=== PATIENT | male | born 1965 | race African-American/Black ===

== ENCOUNTER 2017-12-04 10:48 | Inpatient (IN) | payer OTHER ==
[2017-12-04 13:25] VITALS: BMI 19.2
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
[2017-12-04] MEDS ORDERED: P-EPHED 60MG/TRIPROLIDI 2.5MG TABLET PO PRN (14:58)
[2017-12-04] MEDS ORDERED: chlordiazePOXIDE HCL 25 MG CAPSULE PO PRN (14:58)
[2017-12-04] MEDS ORDERED: ACETAMINOPHEN 325 MG TABLET (FP) PO PRN (14:58)
[2017-12-04] MEDS ORDERED: MAGNESIUM CITRATE 300 ML BOTTLE PO PRN (14:58)
[2017-12-04] MEDS ORDERED: guaiFENesin/D-METHORPHAN HB 10 ML UNIT-DOSE CUPS PO PRN (14:58)
[2017-12-04] MEDS ORDERED: MAGNESIUM HYDROX 2400MG/30ML ORAL SUSPENSION 30 ML CUP PO PRN (14:58)
[2017-12-04] MEDS ORDERED: IBUPROFEN 400 MG TABLET (FP) PO PRN (14:58)
[2017-12-04] MEDS ORDERED: MENTHOL/PHENOL 1 EACH UD MM PRN (14:58)
[2017-12-04] MEDS ORDERED: MAG HYDROX/AL HYDROX/SIMETH 30 ML UNIT-DOSE CUP PO PRN (14:58)
[2017-12-04] MEDS ORDERED: LOPERAMIDE HCL 2 MG CAPSULE PO PRN (14:58)
[2017-12-04] MEDS ORDERED: hydrOXYzine PAMOATE 50 MG CAPSULE (FP) PO PRN (15:03)
[2017-12-04] MEDS ORDERED: chlordiazePOXIDE HCL 25 MG CAPSULE PO ONE (15:03)
[2017-12-04] MEDS ORDERED: NICOTINE POLACRILEX 2 MG GUM BC PRN (15:03)
[2017-12-04] MEDS: chlordiazePOXIDE HCL 25 MG CAPSULE PO SCH ×2 (18:00→22:20)
[2017-12-04] MEDS ORDERED: MELATONIN 5 MG TABLETS PO PRN (22:00)
[2017-12-04] MEDS: THIAMINE HCL 100 MG TABLET (FP) PO SCH (22:20)
[2017-12-05 02:18] LABS: URINE APPEARANCE CLEAR; URINE BILIRUBIN NEGATIVE (<2.0 mg/dL); URINE COLOR AMBER; URINE GLUCOSE (UA) NEGATIVE (NEGATIVE); URINE KETONE NEGATIVE (NEGATIVE); URINE LEUK ESTERASE NEGATIVE (NEGATIVE); URINE NITRITE NEGATIVE (NEGATIVE)
[2017-12-05 02:25] LABS: URINE PROTEIN 1+ (NEGATIVE)
[2017-12-05 02:33] LABS: EPI CELLS RARE /HPF (FEW); URINE MUCUS RARE
[2017-12-05] MEDS: chlordiazePOXIDE HCL 25 MG CAPSULE PO SCH ×4 (06:04→22:28)
[2017-12-05] MEDS ORDERED: ASPIRIN 81 MG CHEWABLE TABLETS PO SCH (10:00)
[2017-12-05] MEDS: PRENATAL VITAMINS W/ FOLIC ACID TABLET (FP) PO SCH (10:18)
--- NOTE | 2017-12-05 10:19 | CONSULT ---
[facility] Psychiatric Consult - Data Date of interview: 12/05/17 Admission source: [facility] Identifying data: Patient is a 52 year old divorce male, father of two, unemployed, living in an SRO, and supported by the [facility] program. This is one of multiple admissions to detox at [facility]. Pt. admitted to for alcohol and marijuana dependence. Substance Abuse History: Smoking Cessation. Smoking history: Current every day smoker. Have you smoked in the past 12 months: Yes. Aproximately how many cigarettes per day: 5. Cigars Per Day: 0. Hx Chewing Tobacco Use: No. Initiated information on smoking cessation: Yes. 'Breaking Loose' booklet given : 12/04/17. - Substance & Tx. History. Hx Alcohol Use: Yes. Hx Substance Use : Yes. Substance Use Type: Alcohol, Cocaine, Marijuana. Hx Substance Use Treatment: Yes (Last Detox at [facility] two months ago). - Substances Abused. Alcohol. Route: Oral. Frequency: Daily. Amount used: 3 pints vodka. Age of first use: 13. Date of Last Use: 12/04/17. Marijuana/Hashish. Route: Smoking. Frequency: 1-2 times per week. Amount used: $10. Age of first use: 13. Date of Last Use: 12/03/17. Crack. Route: Smoking. Frequency: 3-6 times per week. Amount used: $10. Age of first use: 26. Date of Last Use: 12/14 Medical History: Diabetes, Hep C, neuropathy, HIV Psychiatric History: Pt. reports multiple psychiatric hospitalizations, most recently in 2017 [facility]. Pt. is also [facility] to [facility]. [facility] provided at [facility]. As per pharmacy claims patient is prescribed Elavil 25mg. Reports most recently taking elavil couple months ago. Pt. denies h/o suicide attemps. Physical/Sexual Abuse/Trauma History: Denies. Mental Status Exam - Mental Status Exam Alert and Oriented to: Time, Place, Person Cognitive Function: Good Patient Appearance: Well Groomed Mood: Hopeful, Euthymic Affect: Mood Congruent Patient Behavior: Cooperative Speech Pattern: Appropriate Voice Loudness: Normal Thought Process: Intact, Goal Oriented Thought Disorder: Not Present Hallucinations: Denies Suicidal Ideation: Denies Homicidal Ideation: Denies Insight/Judgement: Poor Sleep: Poorly Appetite: Fair Muscle strength/Tone: Normal Gait/Station: Normal Psychiatric Findings - Problem List ([place] 1, 2,3) (1) Alcohol dependence with uncomplicated withdrawal Current Visit: Yes Status: Acute (2) Cannabis dependence, uncomplicated Current Visit: Yes Status: Chronic (3) Cocaine dependence, uncomplicated Current Visit: Yes Status: Chronic (4) Substance-induced sleep disorder Current Visit: Yes Status: Acute - Initial Treatment Plan Initial Treatment Plan: Psychoeducatin provided. Detoxification in progress. Elavil 25mg ordered. Benefits and side effects discussed. Verbal consent given.
[2017-12-05] MEDS: NICOTINE 14 MG/24 HOURS TOPICAL PATCH TD SCH (10:20)
[2017-12-05 10:37] LABS: HEMATOCRIT 39.3 % (35.4-49); HEMOGLOBIN 13.1 GM/dL (11.7-16.9); MCH 33.4 pg (25.7-33.7); MCHC 33.4 g/dl (32.0-35.9); MEAN CELL VOLUME 100.1 fl (80-96); MEAN PLT VOLUME 9.7 fl (7.5-11.1); PLATELET COUNT 155 K/MM3 (134-434); RBC 3.93 M/mm3 (4.00-5.60)
[2017-12-05 11:04] LABS: ALBUMIN 3.2 g/dl (3.4-5.0); ANION GAP 9 (8-16); BILIRUBIN,TOTAL 1.2 mg/dL (0.2-1.0); BLOOD UREA NITROGEN 11 mg/dL (7-18); CALCIUM 8.7 mg/dL (8.5-10.1); CHLORIDE 102 mmol/L (98-107); CO2 30 mmol/L (21-32); GLUCOSE,RANDOM 175 mg/dL (74-106); SGOT/AST 96 U/L (15-37); SGPT/ALT 59 U/L (12-78); SODIUM 141 mmol/L (136-145); TOT PROT 8.1 g/dl (6.4-8.2)
[2017-12-05 11:05] LABS: ALK PHOS 51 U/L (45-117)
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
[2017-12-05] MEDS: CYCLOBENZAPRINE HCL 10 MG TABLET (FP) PO PRN ×2 (14:05→22:27)
[2017-12-05] MEDS: ACYCLOVIR 400 MG TABLET PO SCH ×2 (14:05→22:27)
--- NOTE | 2017-12-05 16:49 | EKG ---
Test Reason : Blood Pressure : / mmHG Vent. Rate : 070 BPM Atrial Rate : 070 BPM P-R Int : 152 ms QRS Dur : 092 ms QT Int : 412 ms P-R-T Axes : 069 035 046 degrees QTc Int : 444 ms NORMAL SINUS RHYTHM MODERATE VOLTAGE CRITERIA FOR LVH, MAY BE NORMAL VARIANT CANNOT RULE OUT SEPTAL INFARCT , AGE UNDETERMINED ABNORMAL ECG NO PREVIOUS ECGS AVAILABLE Confirmed by JUNE SUAREZ, GERA ([id number]) on 12/05/2017 3:51:53 PM Referred By: Confirmed By:GERA WATKINS MD
[2017-12-05] MEDS ORDERED: AMITRIPTYLINE HCL 25 MG TABLET (FP) PO SCH (22:00)
[2017-12-05] MEDS: THIAMINE HCL 100 MG TABLET (FP) PO SCH (22:27)
[2017-12-06] MEDS: chlordiazePOXIDE HCL 25 MG CAPSULE PO SCH ×2 (06:46→10:33)
[2017-12-06] MEDS: PRENATAL VITAMINS W/ FOLIC ACID TABLET (FP) PO SCH (10:33)
[2017-12-06] MEDS: ACYCLOVIR 400 MG TABLET PO SCH (10:34)
[2017-12-06] MEDS: NICOTINE 14 MG/24 HOURS TOPICAL PATCH TD SCH (10:35)
--- NOTE | 2017-12-06 12:18 | PN ---
S CIWA - CIWA Score Nausea/Vomitin-No Nausea/No Vomiting Muscle Tremors: None Anxiety: 4-Mod. Anxious/Guarded Agitation: 3 Paroxysmal Sweats: 3 Orientation: 0-Oriented Tacttile Disturbances: 2-Mild Itch/Numbness/Burn Auditory Disturbances: 0-None Visual Disturbances: 2-Mild Sensitivity Headache: 0-None Present CIWA-Ar Total Score: 14 S Progress Note (SOAP) Subjective: Body Aches, Anxious, Sweating. Objective: PATIENT A & O X 3, OBSERVED AMBULATING ON UNIT. NO ACUTE DISTRESS. 12/06/17 12:15 Vital Signs Temperature 98.2 F 12/06/17 09:35 Pulse Rate 68 12/06/17 09:35 Respiratory Rate 18 12/06/17 09:35 Blood Pressure 123/70 12/06/17 09:35 O2 Sat by Pulse Oximetry (%) Laboratory Tests 12/04/17 12/04/17 12/05/17 15:49 20:41 00:01 WBC RBC Hgb Hct MCV MCH MCHC RDW Plt Count MPV Sodium Potassium Chloride Carbon Dioxide Anion Gap BUN Creatinine Creat Clearance w eGFR POC Glucometer 110 91 Random Glucose Calcium Total Bilirubin AST ALT Alkaline Phosphatase Total Protein Albumin Urine Color Janet Urine Appearance Clear Urine pH 5.0 Ur Specific [place] 1.032 Urine Protein 1+ H Urine Glucose (UA) Negative Urine Ketones Negative Urine Blood Negative Urine Nitrite Negative Urine Bilirubin Negative Urine Urobilinogen 2.0 Ur Leukocyte Esterase Negative Urine WBC (Auto) 1 Urine RBC (Auto) 1 Ur Epithelial Cells Rare Urine Mucus Rare 12/05/17 12/05/17 12/05/17 05:57 07:00 07:00 WBC 3.0 L RBC 3.93 L Hgb 13.1 Hct 39.3 MCV 100.1 H MCH 33.4 MCHC 33.4 RDW 12.0 Plt Count 155 D MPV 9.7 Sodium 141 Potassium 4.0 Chloride 102 Carbon Dioxide 30 Anion Gap 9 BUN 11 Creatinine 1.0 Creat Clearance w eGFR > 60 POC Glucometer 152 Random Glucose 175 H D Calcium 8.7 Total Bilirubin 1.2 H AST 96 H D ALT 59 Alkaline Phosphatase 51 Total Protein 8.1 Albumin 3.2 L Urine Color Urine Appearance Urine pH Ur Specific [place] Urine Protein Urine Glucose (UA) Urine Ketones Urine Blood Urine Nitrite Urine Bilirubin Urine Urobilinogen Ur Leukocyte Esterase Urine WBC (Auto) Urine RBC (Auto) Ur Epithelial Cells Urine Mucus 12/05/17 12/05/17 11:07 17:01 WBC RBC Hgb Hct MCV MCH MCHC RDW Plt Count MPV Sodium Potassium Chloride Carbon Dioxide Anion Gap BUN Creatinine Creat Clearance w eGFR POC Glucometer 85 115 Random Glucose Calcium Total Bilirubin AST ALT Alkaline Phosphatase Total Protein Albumin Urine Color Urine Appearance Urine pH Ur Specific [place] Urine Protein Urine Glucose (UA) Urine Ketones Urine Blood Urine Nitrite Urine Bilirubin Urine Urobilinogen Ur Leukocyte Esterase Urine WBC (Auto) Urine RBC (Auto) Ur Epithelial Cells Urine Mucus LABS NOTED. Assessment: 12/06/17 12:15 WITHDRAWAL SYMPTOMS. Plan: CONTINUE DETOX. INCREASE DAILY PO FLUID INTAKE. RESULTS OF X-RAY OF RIGHT ANKLE NOTED (NO SIGN ACUTE/RECENT INJURY NOTED). RESULTS DISCUSSED WITH PATIENT. PATIENT ADVISED TO EMPLOY [employer] AND TO FOLLOW-UP WITH CLIENT ACCOUNT REPRESENTATIVE AFTER DISCHARGE FROM DETOX UNIT FOR FURTHER EVALUATION. PATIENT VERBALIZED UNDERSTANDING OF RECOMMENDATION.
[2017-12-06 14:22] VITALS: BP 126/79; PULSE 76; TEMP 98.7
[2017-12-06] MEDS ORDERED: chlordiazePOXIDE 5 MG CAPSULE PO SCH (17:00)
--- NOTE | 2017-12-06 17:26 | DS ---
[facility] Detox Discharge Summary Admission Date: 12/04/17 Discharge Date: 12/06/17 - History Present History: Alcohol Dependence, Cannabis Dependence, Cocaine Dependence Additional Comments: PATIENT DOES NOT WISH TO REMAIN TO COMPLETE DETOX REGIMEN. RISKS OF LEAVING DETOX UNIT AGAINST MEDICAL ADVICE AND PRIOR TO COMPLETION OF DETOX REGIMEN EXPLAINED TO PATIENT. PATIENT ADVISED TO GO IMMEDIATELY TO NEAREST ER SHOULD ANY INTOLERABLE DETOX SYMPTOMS DEVELOP AT ANY TIME. PATIENT LEFT DETOX UNIT IN STABLE MEDICAL CONDITION. Pertinent Past History: History of Depression, History of Bipolar Disorder, HIV, Hep C, Neuropathy, Type II DM, Nicotine Dependence. - Physical Exam Results Vital Signs: Vital Signs Temperature 98.7 F 12/06/17 14:00 Pulse Rate 76 12/06/17 14:00 Respiratory Rate 16 12/06/17 14:00 Blood Pressure 126/79 12/06/17 14:00 O2 Sat by Pulse Oximetry (%) Pertinent Admission Physical Exam Findings: WITHDRAWAL SYMPTOMS. Laboratory Tests 12/04/17 12/04/17 12/05/17 15:49 20:41 00:01 WBC RBC Hgb Hct MCV MCH MCHC RDW Plt Count MPV Sodium Potassium Chloride Carbon Dioxide Anion Gap BUN Creatinine Creat Clearance w eGFR POC Glucometer 110 91 Random Glucose Calcium Total Bilirubin AST ALT Alkaline Phosphatase Total Protein Albumin Urine Color Janet Urine Appearance Clear Urine pH 5.0 Ur Specific [place] 1.032 Urine Protein 1+ H Urine Glucose (UA) Negative Urine Ketones Negative Urine Blood Negative Urine Nitrite Negative Urine Bilirubin Negative Urine Urobilinogen 2.0 Ur Leukocyte Esterase Negative Urine WBC (Auto) 1 Urine RBC (Auto) 1 Ur Epithelial Cells Rare Urine Mucus Rare RPR Titer 12/05/17 12/05/17 12/05/17 05:57 07:00 07:00 WBC 3.0 L RBC 3.93 L Hgb 13.1 Hct 39.3 MCV 100.1 H MCH 33.4 MCHC 33.4 RDW 12.0 Plt Count 155 D MPV 9.7 Sodium 141 Potassium 4.0 Chloride 102 Carbon Dioxide 30 Anion Gap 9 BUN 11 Creatinine 1.0 Creat Clearance w eGFR > 60 POC Glucometer 152 Random Glucose 175 H D Calcium 8.7 Total Bilirubin 1.2 H AST 96 H D ALT 59 Alkaline Phosphatase 51 Total Protein 8.1 Albumin 3.2 L Urine Color Urine Appearance Urine pH Ur Specific [place] Urine Protein Urine Glucose (UA) Urine Ketones Urine Blood Urine Nitrite Urine Bilirubin Urine Urobilinogen Ur Leukocyte Esterase Urine WBC (Auto) Urine RBC (Auto) Ur Epithelial Cells Urine Mucus RPR Titer 12/05/17 12/05/17 12/05/17 07:00 11:07 17:01 WBC RBC Hgb Hct MCV MCH MCHC RDW Plt Count MPV Sodium Potassium Chloride Carbon Dioxide Anion Gap BUN Creatinine Creat Clearance w eGFR POC Glucometer 85 115 Random Glucose Calcium Total Bilirubin AST ALT Alkaline Phosphatase Total Protein Albumin Urine Color Urine Appearance Urine pH Ur Specific [place] Urine Protein Urine Glucose (UA) Urine Ketones Urine Blood Urine Nitrite Urine Bilirubin Urine Urobilinogen Ur Leukocyte Esterase Urine WBC (Auto) Urine RBC (Auto) Ur Epithelial Cells Urine Mucus RPR Titer Nonreactive LABS NOTED. - Treatment Hospital Course: Detoxed Safely - Medication Discharge Medications: Ambulatory Orders Emtricitabine/Tenofovir (Tdf) [Truvada 200 mg-300 mg Tablet] 1 each PO DAILY 05/14 Risperidone [Risperdal -] 0.5 mg PO HS #30 tablet 02/29/16 Acyclovir [Zovirax -] 400 mg PO BID tablet 03/01/16 Atazanavir [Reyataz -] 300 mg PO DAILY capsule 03/01/16 Ritonavir [Norvir -] 100 mg PO DAILY@2200 tab 03/01/16 Aspirin 81 mg PO DAILY 12/04/17 - Diagnosis (1) Alcohol dependence with uncomplicated withdrawal Status: Acute (2) Cannabis dependence, uncomplicated Status: Chronic (3) Diabetes Status: Chronic Qualifiers: Diabetes mellitus type: type 2 Diabetes mellitus senior care insulin use: without intermediate school teacher use Diabetes mellitus complication status: with unspecified complications Qualified Code(s): E11.8 - Type 2 diabetes mellitus with unspecified complications (4) HIV (human immunodeficiency virus infection) Status: Chronic (5) Neuropathy Status: Chronic (6) Nicotine dependence Status: Chronic Qualifiers: Nicotine product type: cigarettes Substance use status: uncomplicated Qualified Code(s): F17.210 - Nicotine dependence, cigarettes, uncomplicated (7) Depressed mood Status: Acute - AMA Did Patient Leave Against Medical Advice: Yes (PATIENT DID NOT WISH TO REMAIN TO COMPELTE DETOX REGIMEN.)
[2017-12-07] MEDS ORDERED: chlordiazePOXIDE HCL 10 MG CAPSULE PO SCH (17:00)
== END 2017-12-06 15:47 | disposition left against medical advice (07) | DRG 770 ==
LOC: YASAS 10:48 → Y3N 16:20
PROVIDERS: ADMIT Surgery; ATTEND Surgery
PROC: HZ2ZZZZ Detoxification Services for Substance Abuse Treatment (ICD-10-PCS; principal; 2017-12-04)
DX: F10.230 Alcohol dependence with withdrawal, uncomplicated (principal); F14.20 Cocaine dependence, uncomplicated; F12.20 Cannabis dependence, uncomplicated; F17.210 Nicotine dependence, cigarettes, uncomplicated; F32.9 Major depressive disorder, single episode, unspecified; F19.282 Other psychoactive substance dependence with psychoactive substance-induced sleep disorder; E11.8 Type 2 diabetes mellitus with unspecified complications; Z21 Asymptomatic human immunodeficiency virus [HIV] infection status; G62.9 Polyneuropathy, unspecified; Z91.011 Allergy to milk products; Z91.5 Personal history of self-harm
CPT/HCPCS: 36415; 73610-TC-RT-FY; 80053; 81003; 81015; 82962; 85027; 86593; 93005; 93010

== ENCOUNTER 2020-11-18 12:57 | Inpatient (IN) | payer OTHER ==
[2020-11-18 14:06] VITALS: BMI 19.5
[2020-11-18] MEDS ORDERED: LORazepam 1 MG TABLET PO PRN (15:16)
[2020-11-18] MEDS ORDERED: MAGNESIUM HYDROX 2400MG/30ML ORAL SUSPENSION 30 ML CUP PO PRN (15:16)
[2020-11-18] MEDS ORDERED: BISMUTH SUBSALICYLATE 524 MG/30 ML PO PRN (15:16)
[2020-11-18] MEDS ORDERED: METHOCARBAMOL 500 MG TABLET PO PRN (15:16)
[2020-11-18] MEDS ORDERED: MAGNESIUM CITRATE 300 ML BOTTLE PO PRN (15:16)
[2020-11-18] MEDS ORDERED: ONDANSETRON *ODT* 4 MG TABLET SL PRN (15:16)
[2020-11-18] MEDS ORDERED: MAG HYDROX/AL HYDROX/SIMETH 30 ML UNIT-DOSE CUP PO PRN (15:16)
[2020-11-18] MEDS ORDERED: MENTHOL/PHENOL 1 EACH UD MM PRN (15:16)
[2020-11-18] MEDS ORDERED: ACETAMINOPHEN 325 MG TABLET (FP) PO PRN (15:16)
[2020-11-18] MEDS ORDERED: NICOTINE POLACRILEX 2 MG GUM BUC PRN (15:16)
[2020-11-18] MEDS: LORazepam 2 MG TABLET PO SCH ×2 (18:18→22:32)
[2020-11-18] MEDS: IBUPROFEN 400 MG TABLET (FP) PO PRN (18:19)
[2020-11-18] MEDS: hydrOXYzine PAMOATE 25 MG CAPSULE (FP) PO SCH ×2 (18:37→22:31)
[2020-11-18] MEDS: ACETAMINOPHEN 325 MG TABLET (FP) PO PRN (18:50)
[2020-11-18] MEDS: BICTEGRAV/EMTRICIT/TENOFOV (BIKTARVY) 50-200-25 MG TABLET PO SCH (20:34)
[2020-11-18] MEDS: THIAMINE HCL 100 MG TABLET (FP) PO SCH (22:31)
[2020-11-18] MEDS: MELATONIN 5 MG TABLETS PO SCH (22:32)
[2020-11-19] MEDS: hydrOXYzine PAMOATE 25 MG CAPSULE (FP) PO SCH ×5 (06:27→23:02)
[2020-11-19] MEDS: LORazepam 2 MG TABLET PO SCH ×4 (06:28→23:02)
[2020-11-19 09:57] LABS: HEMATOCRIT 36.3 % (35.4-49); HEMOGLOBIN 12.2 GM/dL (11.7-16.9); MCH 34.2 pg (25.7-33.7); MCHC 33.6 g/dl (32.0-35.9); MEAN CELL VOLUME 101.9 fl (80-96); MEAN PLT VOLUME 9.2 fl (7.5-11.1); PLATELET COUNT 163 10^3/uL (134-434); RBC 3.57 M/mm3 (4.00-5.60); RDW 12.3 % (11.9-15.9); WHITE BLOOD COUNT 3.9 K/mm3 (4.0-10.0)
[2020-11-19 10:27] LABS: CALCIUM 8.2 mg/dL (8.5-10.1)
[2020-11-19 10:28] LABS: BLOOD UREA NITROGEN 16.3 mg/dL (7-18)
[2020-11-19] MEDS: ASPIRIN 81 MG CHEWABLE TABLETS PO SCH (10:29)
[2020-11-19] MEDS: PRENATAL VITAMINS W/ FOLIC ACID TABLET (FP) PO SCH (10:29)
[2020-11-19 10:31] LABS: CREATININE 0.8 mg/dL (0.55-1.3)
[2020-11-19] MEDS: IBUPROFEN 400 MG TABLET (FP) PO PRN ×2 (10:32→18:02)
[2020-11-19] MEDS: BICTEGRAV/EMTRICIT/TENOFOV (BIKTARVY) 50-200-25 MG TABLET PO SCH (10:32)
[2020-11-19 10:33] LABS: BILIRUBIN,TOTAL 0.5 mg/dL (0.2-1); TOT PROT 7.1 g/dl (6.4-8.2)
[2020-11-19] MEDS: ACETAMINOPHEN 325 MG TABLET (FP) PO PRN (14:16)
[2020-11-19] MEDS ORDERED: MASKS NR ONE (17:55)
[2020-11-19] MEDS: THIAMINE HCL 100 MG TABLET (FP) PO SCH (23:02)
[2020-11-19] MEDS: MELATONIN 5 MG TABLETS PO SCH (23:03)
[2020-11-20] MEDS ORDERED: LORazepam 1 MG TABLET PO SCH (05:00)
[2020-11-20] MEDS: hydrOXYzine PAMOATE 25 MG CAPSULE (FP) PO SCH ×2 (06:00→15:05)
[2020-11-20 06:40] VITALS: BP 153/81; PULSE 60; TEMP 97.7
[2020-11-20] MEDS: ACETAMINOPHEN 325 MG TABLET (FP) PO PRN (06:53)
[2020-11-20] MEDS: PRENATAL VITAMINS W/ FOLIC ACID TABLET (FP) PO SCH (15:04)
[2020-11-20] MEDS: ASPIRIN 81 MG CHEWABLE TABLETS PO SCH (15:04)
[2020-11-20] MEDS: BICTEGRAV/EMTRICIT/TENOFOV (BIKTARVY) 50-200-25 MG TABLET PO SCH (15:04)
[2020-11-21] MEDS ORDERED: LORazepam 0.5 MG TABLET PO PRN
[2020-11-21] MEDS ORDERED: LORazepam 0.5 MG TABLET PO SCH (05:00)
[2020-11-22] MEDS ORDERED: LORazepam 0.5 MG TABLET PO ONE (05:00)
== END 2020-11-20 10:40 | disposition left against medical advice (07) | DRG 770 ==
LOC: YASAS 12:57 → Y3N 15:07
PROVIDERS: ADMIT Allergy & Immunology; ATTEND Allergy & Immunology
PROC: HZ2ZZZZ Detoxification Services for Substance Abuse Treatment (ICD-10-PCS; principal; 2020-11-18)
DX: F10.230 Alcohol dependence with withdrawal, uncomplicated (principal); F14.20 Cocaine dependence, uncomplicated; F12.20 Cannabis dependence, uncomplicated; F17.210 Nicotine dependence, cigarettes, uncomplicated; F19.24 Other psychoactive substance dependence with psychoactive substance-induced mood disorder; F31.9 Bipolar disorder, unspecified; Z21 Asymptomatic human immunodeficiency virus [HIV] infection status; G62.9 Polyneuropathy, unspecified; E11.9 Type 2 diabetes mellitus without complications; B18.2 Chronic viral hepatitis C; Z91.14 Patient's other noncompliance with medication regimen; Z91.011 Allergy to milk products
CPT/HCPCS: 36415; 80053; 85027; 86780; C9803; U0003; U0005